=== PATIENT | male | born 1935 | race Caucasian/White ===

== ENCOUNTER 2024-07-02 14:48 | Outpatient (RCR) | payer MEDICARE, SELFPAY ==
--- NOTE | 2024-07-03 08:46 | HP.OTEVAL_ITS ---
Patient's Visit Information Visit Information Visit Information: BASILIO RANGEL is a 88 year old M, referred to Occupational Therapy by MEJIA MCCARTY, with a diagnosis of Bilateral LE lymphedema. Date of Evaluation: 07/02/24 Occupational Therapist: Patito Hurtado, JUAN/Andre, CHT Subjective Subjective: This 88 year old male was seen for OT eval with dx of bilateral LE lymphedema and dtr with pt. states left LE larger than right. Has been using compression socks from [employer]- ( about a year old) states he is less active and has noticed increase in swelling. states he has had swelling for years. Pt is not receptive to therapy but pleasant and receptive to information on mtg. LE swelling. Lymphedema (Circumferential Measure) Mid-foot: right 25cm left 25cm Ankle: right 27cm left 30cm Lower calf: right 33cm left 36.5cm Largest calf: right 39.5cm 42cm Below knee: right 38cm left 43cm Lower Limb Functional Index Lower Extremity Functional Score: 15 Goals Goal: Patient will demonstrate a 20% reduction in edema by discharge: Yes Goal: Patient will demonstrate adequate knowledge of therapeutic exercises by discharge.: Yes Goal: Patient will select an appropriate compression garment and demonstrate adequate knowledge of correct donning technique, care and wearing schedule by discharge.: Yes Goal: Patient will voice understanding of need to replace compression garment every four to six months by discharge.: Yes Rehabilitation General Assessment: Pt arrives with in W/C wearing compressions socks. Pt demo with edema in BLE and in left LE therapist noted fibrotic tissue- Therapist rec.d use of compression wraps ( Velcro closure device at night on left LE only ) to assist in softening and stimulating circulation. As well as using compression socks 20-30mmHg during the day as to not limit his mobility. pts is receptive to this POC. Today therapist also ed. pt and pts family on lymph stimulation ex. was given handouts. does not want to return as they live a distance from [place] and dtr drove from [place] to pick pt up and bring them to the clinic. was given information on compression garments and advised to contact me with questions at any time. family and pt demo understanding and agree to POC. Rehabilitation Potential: Questionable Anticipated Interventions Anticipated Interventions: Education re Diagnosis, Education re Life-long lymphedema Management, Education re Self-Bandaging Techniques, Education re Skin Care and Precautions, Education re Self Massage Techniques, Caregiver Training and Home Program Visit Plan TEXT: Thank you for the opportunity to evaluate your patient. For Medicare and Medicare HMO plans, please review the plan of care and approve it. It will need to be FAXED BACK to us at [phone] for Medicare purposes. Please let me know if there are questions or concerns regarding this plan of care. Physician Signature: Date:
== END 2024-07-02 19:00 | disposition home or self-care (01) ==
LOC: OT 14:48
PROVIDERS: PCP Family Medicine
DX: I89.0 Lymphedema, not elsewhere classified (principal); I48.91 Unspecified atrial fibrillation
CPT/HCPCS: 97166; 97530